=== PATIENT | male | born 1945 | race Caucasian/White ===

== ENCOUNTER 2019-02-15 06:05 | Inpatient (IN) ==
[~2019-02-15 06:05] MED LIST: MORPHINE SULFATE 15 MG TABLET.SA PO PRN; TRANEXAMIC ACID 1,000 MG in NORMAL SALINE 100 ML IV PRN; ceFAZolin SODIUM 1 GM VIAL IV PRN
[2019-02-15] MEDS: RINGER'S SOLUTION,LACTATED 1,000 ML IV PRN ×2 (07:10→09:15)
--- NOTE | 2019-02-15 07:52 | ANES ---
Anesthesia Pre Procedure Eval Vitals/Labs: Last Vital Signs Temp 36.7 C 02/15/19 06:21 Pulse 70 02/15/19 06:21 Resp 18 02/15/19 06:21 BP 148/82 02/15/19 06:21 Pulse Ox 98 02/15/19 06:21 HOME MEDICATIONS Calcium Carbonate/Vitamin D3 [Calcium 600 + Vit D Tablet] 1 ea PO DAILY 07/03/13 [Last Taken Unknown] Lactobacillus Acidophilus [Probiotic] 1 ea PO DAILY 07/03/13 [Last Taken Unknown] Magnesium 250 mg PO DAILY 07/03/13 [Last Taken Unknown] Multivitamins [Multivitamin Oscar] 1 cap PO DAILY 07/03/13 [Last Taken Unknown] Potassium PO DAILY 07/03/13 [Last Taken Unknown] Acetaminophen [Tylenol] 325 mg PO Q4H PRN 07/02/17 [Last Taken Unknown] flash glucose scanning reader See Dose Instructions .ROUTE .MEDSUPPLY #1 ea 05/04/18 [Last Taken Unknown] flash glucose sensor kit See Dose Instructions .ROUTE .MEDSUPPLY #1 ea 05/04/18 [Last Taken Unknown] simvastatin 20 mg tablet 20 mg PO HS #90 tab 06/20/18 [Last Taken Unknown] lisinopril 40 mg tablet 40 mg PO BID #1 tab 09/06/18 [Last Taken Unknown] labetalol 200 mg tablet 400 mg PO BID #360 tab 09/09/18 [Last Taken Unknown] sitagliptin 100 mg tablet 100 mg PO DAILY #90 tab 10/05/18 [Last Taken Unknown] metformin 1,000 mg tablet 1,000 mg PO BID #180 tab 10/06/18 [Last Taken Unknown] omeprazole 40 mg capsule,delayed release 40 mg PO DAILY #90 cap 10/24/18 [Last Taken Unknown] blood sugar diagnostic strips See Dose Instructions .ROUTE .MEDSUPPLY #100 ea 12/26/18 [Last Taken Unknown] clopidogrel 75 mg tablet 75 mg PO DAILY #30 tab 12/26/18 [Last Taken 02/07/19] amlodipine 5 mg tablet See Rx Instructions .ROUTE .COMPLEX #90 tablet 01/04/19 [Last Taken Unknown] glimepiride 4 mg tablet See Rx Instructions .ROUTE .COMPLEX #180 tab 01/04/19 [Last Taken Unknown] lancets See Dose Instructions .ROUTE .MEDSUPPLY #100 ea 01/10/19 [Last Taken Unknown] oxycodone-acetaminophen 5 mg-325 mg tablet 1 tab PO Q8H PRN 01/17/19 [Last Taken Unknown] polyethylene glycol 3350 17 gram/dose oral powder 17 g PO DAILY PRN g 01/24/19 [Last Taken Unknown] Allergies/Adverse Reactions: Allergies Allergy/AdvReac Type Severity Reaction Status Date / Time diphenhydramine HCl AdvReac Mild EXTREME Verified 02/15/19 06:22 [From Benadryl] SLEEPINESS - Planned Procedure Planned Procedure: Left Arthroplasty Total Shoulder Reverse Medication List Reviewed:: Yes Allergies Verified: Yes Medical History (Updated 06/20/18 @ 16:49 by Janette Breen MD) GERD (gastroesophageal reflux disease) (Chronic) Type II diabetes mellitus (Chronic) RYNE on CPAP (Chronic) Spinal stenosis of lumbar region (Chronic) Onset Date: 07/2016 Onychomycosis (Chronic) Onset Date: 04/2013 Neurogenic claudication (Chronic) Onset Date: Unknown Morbid obesity (Chronic) Onset Date: Unknown Low back pain (Chronic) Onset Date: 07/2016 Hypercholesterolemia (Chronic) Onset Date: Unknown Hodgkin lymphoma (Resolved) Onset Date: 12/2015 History of Hodgkin lymphoma in 1953 treated with surgery, chemotherapy and radiation Essential hypertension (Chronic) Onset Date: 12/2016 DJD (degenerative joint disease) (Chronic) Onset Date: Unknown Type 2 diabetes mellitus (Chronic) Onset Date: 07/2001 CKD (chronic kidney disease) (Chronic) Onset Date: 07/2016 Surgical History (Updated 02/15/19 @ 06:23 by Bindu Gregory RN) H/O colonoscopy Onset Date: 08/2012 Dr. Jeong H/O esophagogastroduodenoscopy Onset Date: 09/2014- [facility] for impacted food. Had repeat EGD by Dr. Saenz a couple of months later. 2018 Tommeraasen-clotest negative H/O knee surgery Onset Date: 10/1964 Right-bread board cyst H/O laminectomy Onset Date: 07/2016 Dr. Cook L3-L4, and L4-L5 and L3 hemilaminectomy and L3-4 partial facetectomy, right and left L4 hemilaminectomy and L4-5 partial facetectomy. H/O repair of rotator cuff Onset Date: 09/2002 Left shoulder-[place] History of back surgery Onset Date: 2007 History of carpal tunnel release Onset Date: 06/2013 Right with ganglion cyst removal History of incision and drainage Onset Date: 08/2008 Dr. Melchor-thrombosed hemorrhoid History of lumbar surgery Onset Date: 12/2004 disc repair and cyst removal and 09/16/07: lower lumbar fusion Hx of cataract surgery Onset Date: 06/2017 bilateral tendon/nerve repair Onset Date: 04/2003 Left hand Family History (Updated 11/26/17 @ 15:46 by Kim Mendoza [facility]) Father , age 59 Blood disorder Kidney stones Mother , age 82 Hypertension Cancer breast - Airway/Neck/Teeth Within Normal Limits:: Yes Teeth Condition: intact Mallampatti Score: 3 Thyromental (T-M) distance: > 6 cm Mandibulo Hyoid distance: > 3 cm - Respiratory Smoking Status: Never smoker Discussed smoking cessation including day of surgery: Yes Sleep Apnea currently treated: Yes - Cardiovascular Tolerate Activity: Poor Heart Sounds: S1 & S2, Regular - Anesthesia Assessment and Plan ASA Class: PS, III Anesthesia Type Plan: General LMA, Block - Left ultrasound guided interscalene nerve block for postop analgesia
[2019-02-15] MEDS ORDERED: MORPHINE SULFATE 2 MG/ML DISP.SYRIN IV PRN (10:26)
[2019-02-15] MEDS ORDERED: RINGER'S SOLUTION,LACTATED 1,000 ML IV PRN (10:26)
[2019-02-15] MEDS ORDERED: MAGNESIUM HYDROXIDE 30 ML UDC PO PRN (10:26)
[2019-02-15] MEDS ORDERED: ONDANSETRON HCL/PF 2 MG/ML VIAL IV PRN (10:26)
[2019-02-15] MEDS ORDERED: ZOLPIDEM TARTRATE 5 MG TABLET PO PRN (10:26)
[2019-02-15] MEDS ORDERED: ACETAMINOPHEN 500 MG TABLET PO PRN (10:26)
[2019-02-15] MEDS ORDERED: diphenhydrAMINE HCL 50 MG/ML VIAL IV PRN (10:26)
[2019-02-15] MEDS ORDERED: MAG HYDROX/ALUMINUM HYD/SIMETH 30 ML UDC PO PRN (10:26)
[2019-02-15] MEDS ORDERED: POLYETHYLENE GLYCOL 3350 17 GM PACKET PO PRN (10:29)
--- NOTE | 2019-02-15 10:35 | OR ---
Operative Report - Dictated Report Narrative: DATE OF PROCEDURE: 02/15/2019 PHYSICIAN: Jean-Paul Roth MD OPTICAL TECHNICIAN: Senthil Alvarez PA-C (provided and essential set of skilled, educated hands that assisted with transfer, positioning, prepping, draping, manipulation, retraction, placement of implants, irrigation, closure wounds, and application of dressings all which cannot be performed by the available surgical crew) PREOPERATIVE DIAGNOSIS: Left rotator cuff deficient shoulder arthrosis. POSTOPERATIVE DIAGNOSIS: Left rotator cuff deficient shoulder arthrosis. OPERATIONS AND PROCEDURES: Left reverse total shoulder arthroplasty. Removal of deep implants. ANESTHESIA: General plus regional. COMPLICATIONS: None. DRAINS: None. SPECIMENS: Bone for disposal per patient request. ESTIMATED BLOOD LOSS: 75 mL. RETAINED IMPLANTS: 1. DePuy Delta Xtend cementless metaglene. 2. Delta Xtend glenosphere, 38 mm standard. 3. Delta Xtend size 12 modular humeral EISENBERG-coated cementless stem. 4. Size 1 left modular eccentric epiphysis EISENBERG-coated cementless. 5. Delta Xtend standard polyethylene size 38 plus 3 mm. 6. Metaglene locking screws, 42 mm x 2 in length. 7. Nonlocking metaglene screws, 24 mm x 1 . INDICATIONS FOR PROCEDURE: Mr. Molina is a 73-year-old gentleman with significant past history of rotator cuff tears and deficiency. He had treated these conservatively and had an irreparable rotator cuff with some progression of arthrosis of the shoulder and difficulty with activities of daily living in pain. He was seen in clinic and had failed conservative measures. He wished to proceed with surgical treatment. The risks, benefits, and alternatives were discussed in clinic, including the risk of , blood clots, bleeding, infection, nerve/tendon/blood vessel injury, malposition of components, failure of components, wear or limited range of motion, stiffness, and need for additional procedures, and she wished to proceed. Consent was obtained here in the clinic. DESCRIPTION OF PROCEDURE: After marking the correct extremity in the preoperative holding area, the patient was taken to the operating room. A timeout was performed. IV antibiotics consisting of Ancef were administered prior to procedure. The regional followed by general anesthetic was induced by the nurse gauge machine operator at my request. He was then transitioned to beach chair position with all bony prominences well padded. The head in neutral, legs with SCDs and supported,and the nonoperative arm supported. The surgical arm was prescrubbed with alcohol then prepped and draped in the standard sterile fashion and the skin was covered with ioban. A deltopectoral incision was made and blunt dissection was carried down through the skin. The cephalic vein was identified, protected, and retracted. This was transected during the case and was tied off. We then went through the deltopectoral interval, exposing the proximal humerus. It was noted that there was no rotator cuff, supraspinatus and infraspinatus tendon, or teres minor tendon. The subscapularis was intact as well as the biceps. A tag suture was placed in subscapularis tendon as well as the anterior capsule, and this was elevated off the anterior humerus passing along the bicipital groove and into the rotator cuff interval, exposing the proximal humerus. This was then freed off the proximal humerus. A biceps tenotomy was performed and the shoulder was dislocated. The humeral head was noted to show signs of arthrosis. Next, an entry drill was placed down the humerus centered on the longitudinal axis entering off just onto the articular surface on the humeral head. Next were serial reamers up to the size 12 were utilized, which gave good overall cortical contact. Next, a proximal humeral head cut was performed. We made the cut at approximately 10 degrees of retroversion. This appeared to resect an appropriate amount of humeral head. This was then pinned into place and an oscillating saw was utilized to cut this humeral head, protecting the surrounding soft tissues. We then placed a cap over the proximal humerus and turned our attention to the glenoid. The soft tissues were then elevated off the humeral neck as well as circumferentially around the glenoid. The glenoid was exposed. The remaining biceps tendon and labrum were resected. Using tractors, the glenoid was exposed and a guidewire was placed just posterior and inferior to the center of the glenoid. This was made so that it directed slightly superiorly but otherwise perpendicular to the glenoid on the axillary plane. Protecting the surrounding soft tissues, a reamer was utilized in order to remove the remaining cartilage. A hand i tube bender was utilized in order to resect the superior cartilage, and this resulted in a good overall appearance of the glenoid. The center drill lug hole was drilled and had good circumferential bone. The metaglene was then impacted into place and oriented for placement of screws along the mid plane in the superior and inferior quadrants of the glenoid as well as anterior to posterior screws. These were drilled and had appropriate overall length of screws on the superior and inferior metaglene screws. Good purchase was obtained with a 42 mm screw superiorly and 42 mm screw inferiorly. The anterior screw was drilled and 24 mm anterior nonlocking screw was placed. We then locked the superior and inferior screws into place. This gave good overall compression down to the glenoid with flat overall appearance and an appropriate alignment. We returned our attention to the proximal humerus. The proximal humeral reaming guide was placed for an eccentric reamer. This was utilized in order to prepare the proximal humerus. The trial stem was assembled on the back table and impacted into place. After placing the trial stem, we then returned to the metaglene. The glenosphere was then secured to the metaglene, impacted, and tightened ensuring that this was seated completely. We then returned to the humeral component and placed the trials of polyethylene inserts and found that the 3mm gave good overall longitudinal traction with no gapping. The shoulder was able to reach 140 degrees of forward flexion and 130 degrees of abduction, external rotation was to 80 degrees and with fulcrum and armpit were unable to hinge the joint out of place, and there was no essentially no gapping of the polyethylene off the humeral head nor any signs of impingement on the glenoid neck. We felt that these were the appropriately placed and sized implants. We then dislocated the shoulder, removed the trial implants, thoroughly irrigated the humerus, impacted the final implants into place in the prior determined retroversion. The trial polyethylene was utilized again and was noted that the actual stem and the trial stem were equal in tension, and thus the final polyethylene was impacted into place. The shoulder was reduced, again noted to be stable, was then thoroughly irrigated. The subscapularis was secured to the surrounding soft tissues using a #1 Ethibond suture. The deltopectoral interval was closed with #0 Vicryl. The deep tissues were then closed with #0 Vicryl, subcutaneous with 3-0 Vicryl, and the skin with leanna. Xeroform, 4 x 4, ABD, soft roll, and Tubigrip to the arm was applied. The patient was placed in a shoulder sling, awoken, and transferred to postanesthesia care in stable condition. All sponge, needle, and instrument counts were correct prior to lele sing the wounds. We will obtain postoperative films and be admitted to the floor for postoperative pain control, IV antibiotics, and starting of physical therapy. I anticipate a one to two night hospital stay.
--- NOTE | 2019-02-15 10:49 | ANES ---
Post Anesthesia Discharge - Transfer of Care Transfer of Care handoff given to nurse: Yes - Discharge from PACU Discharge from PACU when meets criteria: Yes - Discharge to ASU Discharge to ASU-no complications/pt stable: Yes
--- NOTE | 2019-02-15 10:53 | ANES ---
Anesthesia Procedure Note Procedure Note: ANESTHESIA PROCEDURE NOTE Date of Procedure: 02/15/2019. Time of procedure: 0755. Performed by: Marcos Ribeiro CRNA Tub Mender: None. Preprocedure diagnosis: Left rotator cuff deficient shoulder arthrosis. Post procedure diagnosis: Same. Procedure: Left ultrasound guided interscalene nerve block for postoperative analgesia. Indications: The patient is a 73-year-old male, requesting left ultrasound- guided interscalene nerve block for postoperative analgesia related to left total shoulder arthroplasty. Findings: See below. Details of the procedure: The tissue over the intended target site was cleansed with ChloraPrep. 1 ml Lidocaine 1 % was infiltrated to the skin and subcutaneous tissue. Under sterile technique and ultrasound guidance a 22-gauge block needle was inserted to the left brachial plexus nerve bundle between the anterior scalene and the middle scalene muscles. 40 mL's of 0.5% bupivacaine plus epinephrine 1:200,000 was injected after negative aspiration for blood. Needle tip and spread of local anesthetic around the brachial plexus was observed throughout the injection with realtime ultrasound visualization. The needle was removed intact. No complications were noted. The images were retained in the hospital medical database. EBL: Minimal. Fluids: N/A. Specimen: N/A. Post procedure condition: The patient tolerated the procedure well. No complications were noted. Thank you for this consultation. Marcos Ribeiro CRNA
[2019-02-15] MEDS: amLODIPine BESYLATE 5 MG TABLET PO SCH (11:35)
[2019-02-15] MEDS: KETOROLAC TROMETHAMINE 15 MG/ML VIAL IV SCH ×3 (11:40→23:38)
[2019-02-15] MEDS: GLIMEPIRIDE 4 MG TABLET PO SCH ×2 (12:00→17:33)
[2019-02-15] MEDS: oxyCODONE HCL/ACETAMINOPHEN 1 TAB TABLET PO PRN ×2 (12:01→23:37)
[2019-02-15] MEDS: ceFAZolin SODIUM 1 GM in DEXTROSE 5 % IN WATER 100 ML IV SCH ×6 (13:23→23:47)
--- NOTE | 2019-02-15 15:06 | ANES ---
Post Anesthesia Assessment - Vital Signs Vitals: Last Vital Signs Temp 37.2 C 02/15/19 11:24 Pulse 72 02/15/19 13:02 Resp 16 02/15/19 13:02 BP 154/86 H 02/15/19 13:02 Pulse Ox 97 02/15/19 13:02 Airway Patency: Normal - Mental Status Level Of Consciousness: Awake - Pain Level Pain Score: 2 - N/V Assessment Nausea/Vomiting Presence: None Dehydration:: No
[2019-02-15] MEDS ORDERED: SENNOSIDES/DOCUSATE SODIUM 1 TAB TABLET PO SCH (21:00)
[2019-02-15] MEDS ORDERED: SIMVASTATIN 20 MG TABLET PO SCH (21:00)
[2019-02-15] MEDS: LISINOPRIL 40 MG TABLET PO SCH (21:23)
[2019-02-15] MEDS: ASPIRIN 81 MG TABLET.DR PO SCH (21:24)
[2019-02-15] MEDS: MORPHINE SULFATE 15 MG TABLET.SA PO SCH (21:24)
[2019-02-15] MEDS: LABETALOL HCL 200 MG TABLET PO SCH (21:24)
[2019-02-16] MEDS: oxyCODONE HCL/ACETAMINOPHEN 1 TAB TABLET PO PRN ×2 (04:08→09:59)
[2019-02-16 05:34] LABS: Hematocrit 35.3 % (42.0-52.0); Hemoglobin 11.5 gm/dL (13.5-18.0); Mean Cell Volume 90.3 fl (78-100); Mean Corpuscular Hemoglobin 29.4 pg (27-31); Mean Corpuscular Hgb Conc 32.6 g/dl (32-36); Mean Platelet Volume 8.7 fl (8-11.3); Platelet Count 172 K/mm3 (150-450); Red Blood Count 3.91 M/mm3 (4.7-6.0)
[2019-02-16 05:46] LABS: Anion Gap 12.3 mmol/L (6.8-13.8); BUN/Creatinine Ratio 12.7 (9.0-21.6); Calcium * 8.4 mg/dL (7.9-10.9); Carbon Dioxide 28.5 mmol/L (24-32.6); Estimated Creat Clear 64.4; Potassium 3.8 mmol/L (3.4-4.6)
[2019-02-16] MEDS: KETOROLAC TROMETHAMINE 15 MG/ML VIAL IV SCH ×2 (05:46→11:24)
[2019-02-16] MEDS ORDERED: PANTOPRAZOLE SODIUM 40 MG TABLET.EC PO SCH (07:00)
[2019-02-16] MEDS: GLIMEPIRIDE 4 MG TABLET PO SCH (08:00)
[2019-02-16] MEDS: ASPIRIN 81 MG TABLET.DR PO SCH (08:02)
[2019-02-16] MEDS: MORPHINE SULFATE 15 MG TABLET.SA PO SCH (08:07)
[2019-02-16] MEDS: amLODIPine BESYLATE 5 MG TABLET PO SCH (08:08)
[2019-02-16] MEDS: LISINOPRIL 40 MG TABLET PO SCH (08:09)
[2019-02-16] MEDS: LABETALOL HCL 200 MG TABLET PO SCH (08:09)
[2019-02-16] MEDS ORDERED: sitaGLIPtin PHOSPHATE 50 MG TABLET PO SCH (09:00)
[2019-02-16] MEDS ORDERED: MULTIVITAMINS 1 CAP CAPSULE PO SCH (09:00)
[2019-02-16] MEDS ORDERED: LACTOBACILLUS ACIDOPHILUS 1 EACH CAPSULE PO SCH (09:00)
[2019-02-16] MEDS ORDERED: MAGNESIUM OXIDE 400 MG TABLET PO SCH (09:00)
[2019-02-16] MEDS ORDERED: CALCIUM CARBONATE/VITAMIN D3 1 TAB TABLET PO SCH (09:00)
--- NOTE | 2019-02-16 13:01 | DS ---
Date of Discharge:: 02/16/19 Description of Stay: Mr. Molina was admitted to the floor after undergoing reverse left total shoulder arthroplasty. Tolerated this well. Was admitted to the floor postoperatively for 24 hours of IV antibiotics, pain control, medical comanagement, and occupational and physical therapy. OT and PT were consulted to assist with activities of daily living and ambulation. Was made weightbearing as tolerated shoulder range of motion per protocol. For reverse total shoulder. Pain was initially controlled with IV regimen. This was transitioned to oral once tolerating a by mouth intake. Was resumed on home diet and medications. SCD and LENY hose were utilized for DVT prophylaxis. Vital signs remained stable to the hospital course. Serial labs were obtained which showed a final hemoglobin of 11.5 grams. BMP was reviewed and was stable. Physical examination throughout the hospital course showed an extremity that had sensation that was intact to light touch, palpable pulses, a benign wound, motor intact. Once an oral pain regimen was tolerated and physical therapy goals were met, it was felt that they were stable for discharge to home. Instructions: Continue shoulder immobilizer with range of motion per protocol. Keep wound clean and dry. If you note any drainage or for comfort you can cover with dry gauze and tape. Change every 2-3 days as needed. Continue with physical therapy. Resume home diet. Report any fever over 101.5 Fahrenheit, uncontrolled pain, increased drainage, foul odor of drainage, new or increased calf pain or shortness of breath, or any other significant complaints. He is to resume his Plavix tomorrow February 17. No driving until instructed otherwise. Follow up in approximately 10-14 days. Procedures Performed: see notes below List Procedures: Reverse left total shoulder arthroplasty Results and Findings: Lab Pending Results 02/16/19 05:20: Sodium 142, Plasma Sodium 143 H, Potassium 3.8, Chloride 105, Carbon Dioxide 28.5, Anion Gap 12.3, BUN 14, Creatinine 1.10, Est GFR (Non-Af Amer) 70, BUN/Creatinine Ratio 12.7, Random Glucose 182 H, Calcium 8.4 02/16/19 05:25: WBC 8.0, RBC 3.91 L, Hgb 11.5 L, Hct 35.3 L, MCV 90.3, MCH 29.4, MCHC 32.6, RDW 13.0, Plt Count 172, MPV 8.7 Discharge Location: Home Disposition: Home self-care Condition: Good Discharge Activity: Activity as tolerated, Other - In immobilizer with range of motion per reverse total shoulder protocol Discharge Diet: Consistent carbs, Low salt, Low fat/chol Referrals: Janette Breen MD [Staff Physician] - Additional Patient Instructions (free text): Follow up Occupational therapy appointment at [facility] rehab department on WednesdayFebruary 17 at 1:00pm. Follow up Orthopedic Dr Roth office appointment on March 02 at 9:45am. Prescriptions (Any new or edited meds): Morphine Sulfate [Ms Contin] 15 mg PO Q12H #20 tablet.sa oxyCODONE HCL/ACETAMINOPHEN [Percocet 5 MG/325 MG] 2 tab PO Q4H PRN #60 tab PRN Reason: Moderate Pain (Pain Scale 4-6) Sennosides/Docusate Sodium [Senokot-S] 2 tab PO HS #30 tab Complete Home Medications List: Complete Home Medication List: Calcium Carbonate/Vitamin D3 [Calcium 600 + Vit D Tablet] 1 ea PO DAILY 07/03/13 Lactobacillus Acidophilus [Probiotic] 1 ea PO DAILY 07/03/13 Magnesium 250 mg PO DAILY 07/03/13 Multivitamins [Multivitamin Oscar] 1 cap PO DAILY 07/03/13 Potassium PO DAILY 07/03/13 Acetaminophen [Tylenol] 325 mg PO Q4H PRN 07/02/17 flash glucose scanning reader See Dose Instructions .ROUTE .MEDSUPPLY #1 ea 05/04/18 flash glucose sensor kit See Dose Instructions .ROUTE .MEDSUPPLY #1 ea 05/04/18 simvastatin 20 mg tablet 20 mg PO HS #90 tab 06/20/18 lisinopril 40 mg tablet 40 mg PO BID #1 tab 09/06/18 labetalol 200 mg tablet 400 mg PO BID #360 tab 09/09/18 sitagliptin 100 mg tablet 100 mg PO DAILY #90 tab 10/05/18 metformin 1,000 mg tablet 1,000 mg PO BID #180 tab 10/06/18 omeprazole 40 mg capsule,delayed release 40 mg PO DAILY #90 cap 10/24/18 blood sugar diagnostic strips See Dose Instructions .ROUTE .MEDSUPPLY #100 ea 12/26/18 clopidogrel 75 mg tablet 75 mg PO DAILY #30 tab 12/26/18 amlodipine 5 mg tablet See Rx Instructions .ROUTE .COMPLEX #90 tablet 01/04/19 glimepiride 4 mg tablet See Rx Instructions .ROUTE .COMPLEX #180 tab 01/04/19 lancets See Dose Instructions .ROUTE .MEDSUPPLY #100 ea 01/10/19 polyethylene glycol 3350 17 gram/dose oral powder 17 g PO DAILY PRN g 01/24/19 Morphine Sulfate [Ms Contin] 15 mg PO Q12H #20 tablet.sa 02/16/19 Sennosides/Docusate Sodium [Senokot-S] 2 tab PO HS #30 tab 02/16/19 oxyCODONE HCL/ACETAMINOPHEN [Percocet 5 MG/325 MG] 2 tab PO Q4H PRN #60 tab 02/16/19 Amb Orders for Discharge: PT Evaluation and Treatment* Facility: [facility], Location: Rehabilitation Services
[2019-02-16 14:51] VITALS: BP 136/77
== END 2019-02-16 15:02 | disposition home or self-care (01) | DRG 483 ==
LOC: MS 06:05
PROVIDERS: ADMIT Orthopaedic Surgery; ATTEND Orthopaedic Surgery
DX: E11.22 Type 2 diabetes mellitus with diabetic chronic kidney disease; Z85.71 Personal history of Hodgkin lymphoma; M19.012 Primary osteoarthritis, left shoulder; M75.122 Complete rotator cuff tear or rupture of left shoulder, not specified as traumatic; N18.3 Chronic kidney disease, stage 3 (moderate); Z68.34 Body mass index [BMI] 34.0-34.9, adult; I12.9 Hypertensive chronic kidney disease with stage 1 through stage 4 chronic kidney disease, or unspecified chronic kidney disease; Z79.84 Long term (current) use of oral hypoglycemic drugs; E66.01 Morbid (severe) obesity due to excess calories
CPT/HCPCS: 36415; 73030; 80048; 85027; 97110; 97161; 97165; 97530; 97535